=== PATIENT | female | born 1950 | race Caucasian/White ===

== ENCOUNTER → 2018-03-31 | Outpatient (CLI) | payer MEDICARE ==
[~2018-03-31] MED LIST: AMLO5TAB4 PO; CLOP75TA33 PO; COR25 PO; FOLI-43 PO; FURO40TA5 PO; GABA-529 PO; GLIP10TA10 PO; INSU3INS6 SQ; LEVO25TA7 PO; LOSA100T14 PO; METF500T6 PO; SIMV40TA5 PO; SPIR25TA6 PO
== END | disposition home or self-care (01) ==
LOC: RAD 09:55
PROVIDERS: ATTEND Internal Medicine Clinical Cardiac Electrophysiology
DX: T82.198A Other mechanical complication of other cardiac electronic device, initial encounter (principal); I50.22 Chronic systolic (congestive) heart failure; I25.5 Ischemic cardiomyopathy
CPT/HCPCS: 71046